=== PATIENT | female | born 2000 | race Caucasian/White ===

== ENCOUNTER 2022-12-04 10:59 | Emergency (ER) | payer OTHER ==
[~2022-12-04] VITALS: Ht 152.4 cm; Wt 90.7 kg
== END 2022-12-04 14:26 | disposition home or self-care (01) ==
LOC: ER 10:59
DX: S93.401A Sprain of unspecified ligament of right ankle, initial encounter (principal); W10.8XXA Fall (on) (from) other stairs and steps, initial encounter; Y93.89 Activity, other specified; Y92.018 Other place in single-family (private) house as the place of occurrence of the external cause; Y99.9 Unspecified external cause status; M25.561 Pain in right knee